=== PATIENT | female | born 1970 | race American Indian/Alaskan Native ===

== ENCOUNTER 2019-03-07 20:46 | Emergency (ER) | payer OTHER ==
[2019-03-07] MEDS ORDERED: Sodium Chloride 0.9% 1,000 ML IV STA (21:17)
--- NOTE | 2019-03-07 21:30 | ED PDOC ---
Syncope/Near Syncope/Dizziness Time Seen by Provider: 03/07/19 21:04 Chief Complaint (Nursing): Dizziness/Lightheaded Chief Complaint (Provider): Dizziness/Lightheaded History Per: Patient History/Exam Limitations: no limitations Onset/Duration Of Symptoms: Hrs Current Symptoms Are (Timing): Still Present Additional Complaint(s): 48 y/o female presents to the ED for evaluation of lightheadedness and palpitations, onset one hour prior to arrival. Patient reports that while at rest, she suddenly felt very lightheaded and shaky. Patient is unsure why. Patient states she feels like her heart is racing as well as short of breath. Patient reports that earlier today she felt fine, had 2 cappuccinos which is one more than usual. Patient states last cappuccino was at 12 PM. At this time, patient notes of having mild nausea. Patient reports she does not believe she is having a panic attack because she doesn't have anxiety. Patient notes of having a thyroid nodule and further states thyroid tests have been almost normal. Patient states she is scheduled to have a biopsy next week. Otherwise, patient denies any stimulants including cough, cold or allergy medications, tobacco or drug use, and chest pain. PMD: Dr. Castro (In [facility]) Past Medical History Reviewed: Historical Data Primary Care Provider: Procedure,Nonphys - Medical History Other PMH: FIBROIDS - Surgical History Other surgeries: myomectomy - Family History Family History: States: Unknown Family Hx - Social History Current smoker - smoking cessation education provided: No Alcohol: Occasional Drugs: Denies - Home Medications Home Medications: Ambulatory Orders Medication Instructions Recorded Dicyclomine [Bentyl] 20 mg PO TID #15 tab 08/01/16 Ondansetron [Zofran] 4 mg PO Q8H PRN #10 tab 08/01/16 - Allergies Allergies/Adverse Reactions: Allergies Allergy/AdvReac Type Severity Reaction Status Date / Time No Known Allergies Allergy Verified 07/31/16 22:52 Review of Systems ROS Statement: Except As Marked, All Systems Reviewed And Found Negative (as per HPI) Cardiovascular: Positive for: Palpitations. Negative for: Chest Pain Respiratory: Positive for: Shortness of Breath Gastrointestinal: Positive for: Nausea. Negative for: Vomiting Neurological: Positive for: Other (lightheadedness) Psych: Negative for: Anxiety Physical Exam - Reviewed Nursing Documentation Reviewed: Yes Vital Signs Reviewed: Yes - Physical Exam Appears: Positive for: In Acute Distress (shaky) Head Exam: Positive for: ATRAUMATIC, NORMOCEPHALIC Skin: Positive for: Warm, Dry Eye Exam: Positive for: EOMI, PERRL ENT: Positive for: Other (dry mucous membrane) Neck: Positive for: Painless ROM, Supple Cardiovascular/Chest: Positive for: Tachycardia (with regular rhythm). Negative for: Murmur Respiratory: Positive for: Normal Breath Sounds. Negative for: Respiratory Distress Gastrointestinal/Abdominal: Positive for: Soft. Negative for: Tenderness Back: Positive for: Normal Inspection. Negative for: Decreased ROM Extremity: Negative for: Calf Tenderness Lymphatic: Negative for: Adenopathy Neurological/Psych: Positive for: Awake, Alert, Oriented (x3), Mood/Affect (Normal Mood/Mildly Anxious Affect), Other (diffuse tremors). Negative for: Motor/Sensory Deficits - Laboratory Results Result Diagrams: 03/07/19 21:43 03/07/19 21:43 - ECG ECG: Positive for: Interpreted By Me, Viewed By Me ECG Rhythm: Positive for: Sinus Tachycardia, Nonspecific Changes. Negative for: ST/T Changes Rate: 113 Medical Decision Making Medical Decision Making: Time: 2116 Impression: Tachycardia and palpitations Plan: -- Type and Screen -- EKG -- CMP -- Free T4 -- FT3 -- Magnesium -- Phosphorus -- T3 -- T4 -- Thyroid Stimulating Hormone -- ED Urine -- ED Urine Dipstick -- CBC with Differentials -- D Dimer -- Sodium Chloride IV 1000 mls/hr -- IV Insertion -- Glucose, Blood, POC -- Ativan 11p Pt reports feeling better. Labs demonstrate low phosphorous and low potassium. DW pt findings and she reports that she has been attempting low carb /avoiding gluten and had not eaten white meat in few days. Repletion ordered. Pt stable for discharge with followup pmd. Scribe Attestation: Documented by Devang Morales, acting as a scribe Isaiah Coronado MD. Provider Scribe Attestation: All medical record entries made by the Scribe were at my direction and personally dictated by me. I have reviewed the chart and agree that the record accurately reflects my personal performance of the history, physical exam, medical decision making, and the department course for this patient. I have also personally directed, reviewed, and agree with the discharge instructions and disposition. Disposition - Clinical Impression Clinical Impression: Hypophosphatemia, Hypokalemia Counseled Patient/Family Regarding: Studies Performed, Diagnosis, Need For Followup - Disposition Disposition: Routine/Home Disposition Time: 23:00 Condition: IMPROVED Additional Instructions: PLEASE INCREASE POTASSIUM AND PHOSPHOROUS RICH FOODS. FOLLOWUP WITH YOUR DOCTOR IN ABOUT A WEEK TO HAVE YOUR BLOOD RECHECKED. Instructions: Hypokalemia (DC)
[2019-03-07 21:54] LABS: BASO % 0.3 % (0.0-2.0); EOS % 0.4 % (0.0-4.0); LYMPH # 2.5 K/uL (1.0-4.3); LYMPH % 28.4 % (20.0-40.0); MEAN CELL VOLUME 86.1 fl (81.0-99.0); MEAN CORPUSCULAR HEMOGLOBIN 29.9 pg (27.0-31.0); MEAN CORPUSCULAR HGB CONC 34.7 g/dL (33.0-37.0); MEAN PLATELET VOLUME 8.7 fl (7.2-11.7); MONO # 0.5 K/uL (0.0-0.8); MONO % 6.1 % (0.0-10.0); NEUT # 5.7 K/uL (1.8-7.0); NEUT % 64.8 % (50.0-75.0); NRBC % 0.1 % (0.0-0.0); RBC 4.35 Mil/uL (3.80-5.20); RED CELL DISTRIBUTION WIDTH 13.7 % (11.5-14.5); WHITE BLOOD COUNT 8.8 K/uL (4.8-10.8)
[2019-03-07 22:05] LABS: ALB/GLOB RATIO 1.4 (1.0-2.1); ALBUMIN 4.5 g/dL (3.5-5.0); ALT/SGPT 19 U/L (9-52); AST/SGOT 25 U/L (14-36); BLOOD UREA NITROGEN 10 mg/dl (7-17); CALCIUM 9.3 mg/dL (8.4-10.2); GFR NON-AFRICAN AMERICAN > 60
[2019-03-07] MEDS ORDERED: Potassium & Sodium Phosphate PO STA (22:29)
[2019-03-07 22:36] LABS: T3 1.01 nmol/L (1.49-2.60)
[2019-03-07 22:42] LABS: BARBITURATES, UR NEGATIVE (NEGATIVE); BENZODIAZEPINES, UR NEGATIVE (NEGATIVE); OPIATES, UR NEGATIVE (NEGATIVE); PHENCYCLIDINE, UR NEGATIVE (NEGATIVE)
[2019-03-08 00:05] VITALS: BP 120/69; PULSE 83; RESP 18; TEMP 98.6; O2SAT 100
--- NOTE | 2019-03-08 09:48 | CARD ---
APPROVED REPORT Date of service: 03/07/2019 EKG Measurement Heart [id number] <Conclusion> Sinus tachycardia ST & T wave abnormality, consider inferolateral ischemia Abnormal ECG
== END 2019-03-08 00:03 | disposition home or self-care (01) ==
LOC: H.ER 20:46
DX: E83.30 Disorder of phosphorus metabolism, unspecified (principal); E87.6 Hypokalemia
CPT/HCPCS: 80053; 80324; 80345; 80346; 80349; 80353; 80358; 80361; 81025; 82948; 83735; 83992; 84100; 84436; 84439; 84443; 84481; 85025; 85378; 86850; 86900; 93005; 96361; 96374; 99283; J2060; J7030